=== PATIENT | female | born 1960 | race Caucasian/White ===

== ENCOUNTER → 2018-05-25 | Outpatient (CLI) | payer OTHER ==
[~2018-05-25] MED LIST: ALBUTEROL0.09 MG/A2 IH; AMBIEN10 M1 PO; ASPIRIN81 M1 PO; ATENOLOL PO; ATIVAN0.5 MG PO; AUGMENTIN 875 M1 TA1 PO; AUGMENTIN 875 M1 TAB PO; CELEXA40 MG PO; CLARITIN10 MG PO; LOMOTIL 0.025 M1 TA1 PO; LOS; LOSARTAN PO; LOSARTAN POTASS1 TA9 PO; MOTRIN800 MG PO; Metformin Hydr500 MG PO; NORVASC; NORVASC5 MG PO; PRAVACHOL40 MG PO; REMERON; REMERON15 MG PO; SYNTHROID,LEV100 MCG PO; TORADOL10 MG PO; VIBRAMYCIN100 MG PO; VICODIN ES 7501 TAB PO; ZOFRAN ODT4 MG SL
== END | disposition home or self-care (01) ==
LOC: MAMMO 05-18 17:00
DX: Z12.31 Encounter for screening mammogram for malignant neoplasm of breast (principal); R92.8 Other abnormal and inconclusive findings on diagnostic imaging of breast

== ENCOUNTER → 2018-06-03 | Outpatient (CLI) | payer OTHER | END | disposition home or self-care (01) | LOC: US 02:39 → MAMMO 09:00 | DX: R92.8 Other abnormal and inconclusive findings on diagnostic imaging of breast (principal) ==

== ENCOUNTER → 2018-06-29 | Outpatient (CLI) | payer OTHER | END | disposition home or self-care (01) | LOC: RAD 16:40 | DX: M54.18 Radiculopathy, sacral and sacrococcygeal region (principal); M47.896 Other spondylosis, lumbar region; M85.89 Other specified disorders of bone density and structure, multiple sites ==

== ENCOUNTER → 2018-10-18 | Outpatient (CLI) | payer OTHER ==
[2018-10-18 09:09] LABS: ALBUMIN 3.8 gm/dl (3.1-4.5); CREATININE 1.41 mg/dL (0.55-1.02); POTASSIUM 3.4 mmol/L (3.5-5.1); TOTAL PROTEIN 7.5 gm/dL (6.4-8.2)
== END | disposition home or self-care (01) ==
LOC: LAB 08:21
PROVIDERS: Nurse Practitioner Family
DX: E11.65 Type 2 diabetes mellitus with hyperglycemia (principal); E78.5 Hyperlipidemia, unspecified; I10 Essential (primary) hypertension; I69.30 Unspecified sequelae of cerebral infarction; E03.9 Hypothyroidism, unspecified; E55.9 Vitamin D deficiency, unspecified; Z95.0 Presence of cardiac pacemaker

== ENCOUNTER → 2019-05-26 | Outpatient (CLI) | payer BC ==
[2019-05-26 10:51] LABS: BASO # 0.1 10*3/uL (0.0-0.1); BASO % 0.8 % (0.0-1.0); EOS # 0.2 10*3/uL (0.0-0.4); EOS % 2.9 % (1.0-4.0); HEMATOCRIT 44.6 % (37.0-47.0); HEMOGLOBIN 14.3 g/dl (12.0-16.0); LYMPH # 2.3 10*3/uL (1.3-4.4); LYMPH % 38.3 % (27.0-41.0); MEAN CELL VOLUME 93.7 fl (81.0-99.0); MEAN CORPUSCULAR HGB CONC 32.1 g/dl (33.0-37.0); MEAN PLATELET VOLUME 9.5 fl (9.6-12.3); MONO # 0.4 10*3/uL (0.1-1.0); MONO % 6.9 % (3.0-9.0); NEUT % 50.9 % (47.0-73.0); PLATELET COUNT AUTOMATED 296 10*3/uL (130-400); RED BLOOD COUNT 4.76 10*6/uL (4.10-5.10); RED CELL DISTRI WIDTH 13.2 % (0-14.5); WHITE BLOOD COUNT 5.9 10*3/uL (4.8-10.8)
[2019-05-26 11:17] LABS: ALBUMIN 3.7 gm/dl (3.1-4.5); ALKALINE PHOSPHATASE 74 U/L (45-117); BUN 13 mg/dl (7-24); CHLORIDE 106 mmol/L (98-107); CHOLESTEROL 218 mg/dL (<200); CREATININE 1.04 mg/dL (0.55-1.02); HDL CHOLESTEROL 61 mg/dl (40-60); LDL CHOLESTEROL 124 mg/dL (9-159); POTASSIUM 3.4 mmol/L (3.5-5.1); SGOT/AST 11 IU/L (3-35); SGPT/ALT 18 U/L (12-78); SODIUM 140 mmol/L (136-145); TOTAL PROTEIN 7.5 gm/dL (6.4-8.2); TRIGLYCERIDES 165 mg/dl (<150); VLDL CHOLESTEROL 33 mg/dL (6-40)
== END | disposition home or self-care (01) ==
LOC: LAB 10:24
PROVIDERS: Nurse Practitioner Family
DX: F41.9 Anxiety disorder, unspecified (principal); E03.9 Hypothyroidism, unspecified; E11.65 Type 2 diabetes mellitus with hyperglycemia; I10 Essential (primary) hypertension; F51.01 Primary insomnia; E78.1 Pure hyperglyceridemia

== ENCOUNTER → 2020-08-27 | Outpatient (CLI) | payer OTHER ==
[2020-08-27 11:18] LABS: BASO # 0.1 10*3/uL (0.0-0.1); BASO % 0.8 % (0.0-1.0); EOS # 0.3 10*3/uL (0.0-0.4); EOS % 5.2 % (1.0-4.0); HEMATOCRIT 43.5 % (37.0-47.0); LYMPH % 33.4 % (27.0-41.0); MEAN CELL VOLUME 92.9 fl (81.0-99.0); MEAN CORPUSCULAR HGB 29.7 pg (27.0-31.0); MEAN PLATELET VOLUME 9.6 fl (9.6-12.3); MONO # 0.4 10*3/uL (0.1-1.0); MONO % 6.1 % (3.0-9.0); NEUT # 3.3 10*3/uL (2.3-7.9); NEUT % 54.2 % (47.0-73.0); PLATELET COUNT AUTOMATED 292 10*3/uL (130-400); RED BLOOD COUNT 4.68 10*6/uL (4.10-5.10); RED CELL DISTRI WIDTH 12.9 % (0-14.5); WHITE BLOOD COUNT 6.1 10*3/uL (4.8-10.8)
[2020-08-27 11:34] LABS: ACT PARTIAL THROMBO TIME 22.7 SECONDS (20.0-32.1); INTERNATIONAL NORM RATIO 0.9 (2.0-3.5)
[2020-08-27 11:46] LABS: ALBUMIN 3.7 gm/dl (3.1-4.5); ALKALINE PHOSPHATASE 89 U/L (45-117); BUN 11 mg/dl (7-24); CHLORIDE 107 mmol/L (98-107); POTASSIUM 3.7 mmol/L (3.5-5.1); SGOT/AST 17 IU/L (3-35); SGPT/ALT 28 U/L (12-78); SODIUM 139 mmol/L (136-145); TOTAL PROTEIN 7.3 gm/dL (6.4-8.2)
[2020-08-27 11:53] LABS: BILIRUBIN Negative (Negative); BLOOD Negative (Negative); CLARITY Cloudy (Clear); COLOR Yellow (Yellow); GLUCOSE Negative (Negative); KETONE Trace (Negative); LEUKO ESTERASE Negative (Negative); NITRITE Negative (Negative); PH 5.5 (4.5-8.0); SPECIFIC GRAVITY 1.025 (1.001-1.030)
[2020-08-27 12:13] LABS: BACTERIA 3+; CALCIUM OXALATE CRYSTALS 4+
== END | disposition home or self-care (01) ==
LOC: LAB 10:50
PROVIDERS: ATTEND Orthopaedic Surgery
DX: Z01.818 Encounter for other preprocedural examination (principal); I10 Essential (primary) hypertension; M19.90 Unspecified osteoarthritis, unspecified site; E07.9 Disorder of thyroid, unspecified; E78.00 Pure hypercholesterolemia, unspecified; Z95.0 Presence of cardiac pacemaker; Z79.899 Other long term (current) drug therapy; Z86.73 Personal history of transient ischemic attack (TIA), and cerebral infarction without residual deficits

== ENCOUNTER 2022-04-20 11:32 | Emergency (ER) | payer OTHER ==
[~2022-04-20] VITALS: Ht 170.1 cm; Wt 94.3 kg
[2022-04-20 15:46] VITALS: BP 154/96
== END 2022-04-20 21:33 | disposition home or self-care (01) ==
LOC: ED 11:32
DX: S00.83XA Contusion of other part of head, initial encounter (principal); S80.02XA Contusion of left knee, initial encounter; M79.672 Pain in left foot; M25.572 Pain in left ankle and joints of left foot; Z91.041 Radiographic dye allergy status; Z88.2 Allergy status to sulfonamides; Z91.048 Other nonmedicinal substance allergy status; Z88.1 Allergy status to other antibiotic agents; Z88.8 Allergy status to other drugs, medicaments and biological substances; Z79.2 Long term (current) use of antibiotics; Z79.82 Long term (current) use of aspirin; Z79.899 Other long term (current) drug therapy; Z90.710 Acquired absence of both cervix and uterus; Z98.890 Other specified postprocedural states; Z86.73 Personal history of transient ischemic attack (TIA), and cerebral infarction without residual deficits; W01.198A Fall on same level from slipping, tripping and stumbling with subsequent striking against other object, initial encounter; Y93.89 Activity, other specified; Y92.098 Other place in other non-institutional residence as the place of occurrence of the external cause; Y99.8 Other external cause status

== ENCOUNTER 2023-12-21 11:07 | Emergency (ER) | payer OTHER ==
[~2023-12-21] VITALS: Ht 167.6 cm; Wt 95.3 kg
[~2023-12-21 11:07] MED LIST changes: +ARIPIPRAZOLE OD10 MG PO; +ATIVAN1 MG PO; +DETROL PO; +LEVOTHYROXINE50 MCG PO; +LOSARTAN POTAS100 M1 PO; +MONTELUKAST SOD10 MG PO; +NIFEDIPINE60 MG PO; +PANTOPRAZOLE SO40 MG PO; +SIMVASTATIN40 MG PO; +TOPROL XL25 MG PO; +TRAZODONE100 MG PO; +TRULICITY0.75 MG/0. SC; +VENT7GM INH; +ZOLOFT100 MG PO; +ZOLPIDEM TART12.5 MG PO
[2023-12-21 11:15] VITALS: BP 143/69
[2023-12-21] MEDS ORDERED: GLIMEPIRIDE2 MG PO (11:20)
[2023-12-21 11:44] LABS: BASO % 0.3 % (0.0-1.0); EOS # 0.1 10*3/uL (0.0-0.4); EOS % 1.4 % (1.0-4.0); HEMATOCRIT 39.6 % (37.0-47.0); LYMPH # 1.7 10*3/uL (1.3-4.4); LYMPH % 16.8 % (27.0-41.0); MEAN CELL VOLUME 94.5 fl (81.0-99.0); MEAN CORPUSCULAR HGB 30.3 pg (27.0-31.0); MEAN CORPUSCULAR HGB CONC 32.1 g/dl (33.0-37.0); MEAN PLATELET VOLUME 9.5 fl (9.6-12.3); MONO # 0.8 10*3/uL (0.1-1.0); NEUT # 7.5 10*3/uL (2.3-7.9); NEUT % 73.2 % (47.0-73.0); PLATELET COUNT AUTOMATED 272 10*3/uL (130-400); RED BLOOD COUNT 4.19 10*6/uL (4.10-5.10); RED CELL DISTRI WIDTH 12.4 % (0-14.5); WHITE BLOOD COUNT 10.3 10*3/uL (4.8-10.8)
[2023-12-21 12:05] LABS: BILIRUBIN 2+ (Negative); BLOOD Negative (Negative); CLARITY Turbid (Clear); GLUCOSE Negative (Negative); KETONE Trace (Negative); LEUKO ESTERASE Trace (Negative); NITRITE Negative (Negative); PH 5.5 (4.5-8.0); SPECIFIC GRAVITY >= 1.030 (1.001-1.030)
[2023-12-21 12:07] LABS: ALKALINE PHOSPHATASE 72 U/L (46-116); BUN 9 mg/dl (9-23); CHLORIDE 104 mmol/L (98-107); LIPASE 45 U/L (12-53); POTASSIUM 3.5 mmol/L (3.4-5.1); SGPT/ALT 13 U/L (5-49); TOTAL PROTEIN 6.8 gm/dL (6.0-8.0)
[2023-12-21 12:18] LABS: BACTERIA 4+; CALCIUM OXALATE CRYSTALS 2+; EPITHELIAL CELLS 16-20; MUCOUS 2+
[2023-12-21 12:19] LABS: COLOR Dark Yellow (Yellow)
[2023-12-21] MEDS ORDERED: CIPRO500 MG PO (13:47)
[2023-12-21] MEDS ORDERED: METRONIDAZOLE500 M1 PO (13:47)
== END 2023-12-21 14:55 | disposition home or self-care (01) ==
LOC: ED 11:07
PROVIDERS: Physician Assistant Medical
DX: K57.32 Diverticulitis of large intestine without perforation or abscess without bleeding (principal); N39.0 Urinary tract infection, site not specified; E11.9 Type 2 diabetes mellitus without complications; E78.5 Hyperlipidemia, unspecified; I10 Essential (primary) hypertension; F32.A Depression, unspecified; F41.9 Anxiety disorder, unspecified; Z91.041 Radiographic dye allergy status; Z88.2 Allergy status to sulfonamides; Z88.8 Allergy status to other drugs, medicaments and biological substances; Z90.49 Acquired absence of other specified parts of digestive tract; Z90.710 Acquired absence of both cervix and uterus; Z98.51 Tubal ligation status; Z95.5 Presence of coronary angioplasty implant and graft; Z98.890 Other specified postprocedural states

== ENCOUNTER → 2024-09-19 | Outpatient (CLI) | payer OTHER ==
[~2024-09-19] MED LIST changes: +CIPRO500 MG PO; +GLIMEPIRIDE2 MG PO; +METRONIDAZOLE500 M1 PO
[2024-09-19 11:32] LABS: BASO # 0.1 10*3/uL (0.0-0.1); BASO % 0.8 % (0.0-1.0); EOS # 0.2 10*3/uL (0.0-0.4); EOS % 2.4 % (1.0-4.0); HEMATOCRIT 44.6 % (37.0-47.0); MEAN CELL VOLUME 92.1 fl (81.0-99.0); MEAN CORPUSCULAR HGB 29.1 pg (27.0-31.0); MEAN CORPUSCULAR HGB CONC 31.6 g/dl (33.0-37.0); MEAN PLATELET VOLUME 9.3 fl (9.6-12.3); MONO # 0.4 10*3/uL (0.1-1.0); NEUT # 3.7 10*3/uL (2.3-7.9); PLATELET COUNT AUTOMATED 286 10*3/uL (130-400); RED BLOOD COUNT 4.84 10*6/uL (4.10-5.10); RED CELL DISTRI WIDTH 13.4 % (0-14.5); WHITE BLOOD COUNT 6.6 10*3/uL (4.8-10.8)
[2024-09-19 11:52] LABS: SGPT/ALT 15 U/L (5-49)
== END | disposition home or self-care (01) ==
LOC: LAB 11:01
DX: Z51.81 Encounter for therapeutic drug level monitoring (principal)